=== PATIENT | female | born 1975 | race Caucasian/White ===

== ENCOUNTER 2016-07-25 20:37 | Emergency (ER) | payer MEDICAID ==
[2016-07-25 20:45] VITALS: BP 124/66; PULSE 97; RESP 16; TEMP 97.9; O2SAT 95
--- NOTE | 2016-07-25 20:53 | EDPHY ---
H & P Stated Complaint: R hand injury Time Seen by Provider: 07/25/16 20:48 HPI/ROS: CHIEF COMPLAINT: Right hand pain HISTORY OF PRESENT ILLNESS: The patient is a 40-year-old female who fell on an outstretched hand after tripping over a curve. She has pain to the ulnar aspect of her right hand and wrist. Mild swelling, she tends to hold her arm in a supinated position. No elbow or shoulder pain, no head or neck pain. She denies other injuries. This happened just prior to arrival. She classifies her pain is severe. REVIEW OF SYSTEMS: Constitutional: denies: chills, fever, recent illness, recent injury EENTM: denies: blurred vision, double vision, nose congestion Respiratory: denies: cough, shortness of breath Cardiac: denies: chest pain, irregular heart rate, lightheadedness, palpitations Gastrointestinal/Abdominal: denies: abdominal pain, diarrhea, nausea, vomiting, blood streaked stools Genitourinary: denies: dysuria, frequency, hematuria, pain Musculoskeletal: See HPI Skin: denies: lesions, rash, jaundice, bruising Neurological: denies: headache, numbness, paresthesia, tingling, dizziness, weakness Hematologic/Lymphatic: denies: blood clots, easy bleeding, easy bruising Immunologic/allergic: denies: HIV/AIDS, transplant EXAM: GENERAL: Well-appearing, well-nourished and in no acute distress. HEAD: Atraumatic, normocephalic. EYES: Pupils equal round and reactive to light, extraocular movements intact, sclera anicteric, conjunctiva are normal. ENT: TMs normal, nares patent, oropharynx clear without exudates. Moist mucous membranes. NECK: Normal range of motion, supple without lymphadenopathy or JVD. LUNGS: Breath sounds clear to auscultation bilaterally and equal. No wheezes rales or rhonchi. HEART: Regular rate and rhythm without murmurs, rubs or gallops. ABDOMEN: Soft, nontender, normoactive bowel sounds. No guarding, no rebound. No masses appreciated. BACK: No CVA tenderness, no spinal tenderness, step-offs or deformities EXTREMITIES: Hand held in supinated position, mild swelling to the lateral aspect. No pain with axial loading. Normal pulses. Abrasions to the palm superficially. NEUROLOGICAL: Cranial nerves II through XII grossly intact. Normal speech, normal gait. 5/5 strength, normal movement in all extremities, normal sensation PSYCH: Normal mood, normal affect. SKIN: Warm, dry, normal turgor, no visible rashes or lesions. Source: Patient Exam Limitations: No limitations - Personal History LMP (Females 10-55): 8-14 Days Ago Current Tetanus/Diphtheria Vaccine: No Current Tetanus Diphtheria and Acellular Pertussis (TDAP): No - Medical/Surgical History Hx Asthma: No Hx Chronic Respiratory Disease: No Hx Diabetes: No Hx Cardiac Disease: No Hx Renal Disease: No Hx Cirrhosis: No Hx Alcoholism: No Hx HIV/AIDS: No Hx Splenectomy or Spleen Trauma: No Other PMH: L elbow dislocation - Family History Significant Family History: No pertinent family hx - Social History Smoking Status: Never smoked Alcohol Use: Sober Drug Use: None Constitutional: Initial Vital Signs Temperature (C) 36.6 C 07/25/16 20:42 Heart Rate 97 07/25/16 20:42 Respiratory Rate 16 07/25/16 20:42 Blood Pressure 124/66 H 07/25/16 20:42 O2 Sat (%) 95 07/25/16 20:42 O2 Delivery Mode Room Air Allergies/Adverse Reactions: No Known Allergies Allergy (Unverified 07/25/16 20:41) Home Medications: Medication Instructions Recorded Hydrocodone/APAP 5/325 [[place] 1 - 2 each PO Q4 PRN #14 tab 07/25/16 5/325] Medical Decision Making - Diagnostics Imaging: X-ray: Hand and wrist x-ray was obtained. I viewed the images myself on the PACS system. My interpretation of the images is: Positive for nondisplaced transverse fracture 5th metacarpal base. The radiologist interpretation is pending. Procedures: Procedure: Splint placement. A ulnar gutter splint was applied. After application of the splint I returned and re-examined the patient. The splint was adequately immobilizing the joint and distal to the splint the patient's circulation and sensation was intact. ED Course/Re-evaluation: The patient has a nondisplaced 5th metacarpal fracture. We discussed splinting and follow up and continued treatment. The patient and understand and agree with this plan. They declined further workup or testing at this time. Additional verbal discharge instructions given. Differential Diagnosis: Partial list of the Differential diagnosis considered include but were not limited to; hand fracture, abrasion, wrist fracture, sprain and although unlikely based on the history and physical exam, I also considered head injury, neck injury, elbow injury. I discussed these differential diagnoses and the plan with the patient as well as the usual and expected course. The patient understands that the diagnosis is provisional and that in medicine we are not always correct and that further workup is often warranted. Usual and customary warnings were given. All of the patient's questions were answered. The patient was instructed to return to the emergency department should the symptoms at all worsen or return, otherwise to followup with the physician as we discussed. - Data Points Medications Given: Discontinued Medications Acetaminophen/Hydrocodone Bitart ([place] 5/325) 1 tab PO EDNOW ONE Stop: 07/25/16 20:58 Last Admin: 07/25/16 21:04 Dose: 1 tab Acetaminophen/Hydrocodone Bitart ([place] 5/325mg Prepack#6) 1 btl TAKEHOME EDNOW ONE Stop: 07/25/16 21:41 Last Admin: 07/25/16 21:41 Dose: 1 btl Departure - Departure Disposition: Home, Routine, Self-Care Clinical Impression: Closed fracture of 5th metacarpal Qualifiers: Encounter type: initial encounter Metacarpal location: base Fracture alignment : nondisplaced Laterality: right Qualifier Code: (S62.346A) Nondisplaced fracture of base of fifth metacarpal bone, right hand, initial encounter for closed fracture Abrasion hand Qualifiers: Encounter type: initial encounter Laterality: right Qualifier Code: (S60.511A) Abrasion of right hand, initial encounter Condition: Fair Instructions: Hydrocodone/Acetaminophen (By mouth), Hand Fracture (ED) Additional Instructions: Follow up with Dr. Rivera in 5-7 days. Do not drink or drive when taking [place]. Referrals: Annika Gardner PAC [Primary Care Provider] - As per Instructions Crispin Rivera MD [Medical Doctor] - As per Instructions Prescriptions: Hydrocodone/APAP 5/325 [[place] 5/325] 1 - 2 each PO Q4 PRN #14 tab PRN Reason: Pain, Mild
[2016-07-25] MEDS ORDERED: HYDROCODONE/APAP 5/325 TAB PO ONE (20:57)
--- NOTE | 2016-07-25 21:15 | DX ---
Right hand 3 views History: pain after falling on outstretched hand. Findings: Nondisplaced fracture of the right 5th metacarpal is found near the carpometacarpal joint. No radiopaque foreign body other than rings around the thumb. Impression: Fracture of base of right 5th metacarpal.
--- NOTE | 2016-07-25 21:17 | DX ---
Right wrist 4 views History: pain after falling on outstretched hand. Findings: Nondisplaced fracture of base of right 5th metacarpal appears acute. Fracture does not appe ar to extend into the carpometacarpal joint. Carpal bones are intact. Distal radius and distal ulna a re intact. Impression: Fracture of base of 5th metacarpal.
[2016-07-25] MEDS ORDERED: HYDROCOD/APAP 5/325 PREPACK#6 BTL TAKEHOME ONE (21:40)
== END 2016-07-25 21:50 | disposition home or self-care (01) ==
PROC: 2W3CX1Z Immobilization of Right Lower Arm using Splint (ICD-10-PCS; principal; 2016-07-25)
DX: S62.346A Nondisplaced fracture of base of fifth metacarpal bone, right hand, initial encounter for closed fracture (principal); S60.511A Abrasion of right hand, initial encounter; W01.0XXA Fall on same level from slipping, tripping and stumbling without subsequent striking against object, initial encounter; Y93.89 Activity, other specified